=== PATIENT | female | born 1960 | race Caucasian/White ===

== ENCOUNTER 2020-03-29 20:02 | Inpatient (IN) | payer OTHER, MEDICAID ==
[~2020-03-29] VITALS: Ht 167.6 cm; Wt 100.9 kg
--- NOTE | ~2020-03-29 | PROC ---
[address] [address] PROCEDURE REPORT Name: ALYCE GRAMAJO Room: [address] IN ..#: [id number] Admission: 03/30/20 Attend Phys: Whitney ham los [place] Discharge: Date of : 64 Report #: [id number] THIS REPORT FOR: //name// cc: Parker Han MD, Melvin L. MD ~ THIS REPORT FOR: //name// For GI report, please see the Provation report in Perceptive 7 content. By: 0647Medical Records Staff LUCIAN /GAIL
[~2020-03-29 20:02] MED LIST: FENTANYL PA25 MCG/HR; MINOCIN100 MG PO; PREDNISONE 10 M10 MG PO; PRINIVIL20 M1 PO; PROTONIX40 M1 PO; TRAMADOL 50 MG50 MG PO
[2020-03-29 20:18] VITALS: BP 136/71
[2020-03-29 20:38] LABS: ABSOLUTE BASOPHILS 0.1 thou/uL (0.0-0.2); ABSOLUTE EOSINOPHILS 0.1 thou/uL (0.0-0.7); ABSOLUTE LYMPHOCYTES 2.3 thou/uL (0.8-5.3); ABSOLUTE MONOCYTES 0.5 thou/uL (0.0-1.2); ABSOLUTE NEUTROPHILS 3.1 thou/uL (1.6-8.1); BASOPHILS 1.8 %; EOSINOPHILS 2.4 %; HEMATOCRIT 33.2 % (37.0-47.0); HEMOGLOBIN 10.7 gm/dL (12.0-15.0); LYMPHOCYTES 37.3 %; MCH 22.8 pg (26.0-34.0); MCHC 32.1 g/dL (28.0-37.0); MONOCYTES 8.3 %; MPV 8.6 fl. (7.2-11.1); NUCLEATED RBCS 0 /100WBC; PLATELET COUNT* 364 thou/uL (150-400); POLYS 50.2 %; RBC 4.67 mil/uL (4.20-5.00); RDW-CV 23.7 % (10.5-14.5); WBC 6.1 thou/uL (4.0-11.0)
[2020-03-29 20:48] LABS: CALCIUM 8.8 mg/dL (8.5-10.1); CREATININE 1.2 mg/dL (0.6-1.3)
[2020-03-29 20:50] LABS: INR 0.9; PROTIME 9.4 Seconds (9.20-11.50)
[2020-03-29 21:00] LABS: POTASSIUM 2.7 mmol/L (3.5-5.1)
[2020-03-29 21:03] LABS: ALBUMIN 3.5 g/dL (3.4-5.0); MAGNESIUM 1.4 mg/dL (1.8-2.4); TOTAL BILIRUBIN 0.8 mg/dL (<0.1-1.0); TOTAL PROTEIN 8.2 g/dL (6.4-8.2)
[2020-03-29 22:09] LABS: ANISOCYTOSIS 2+; HYPOCHROMASIA 1+; MICROCYTES 2+; PLATELET ESTIMATE ADEQUATE
--- NOTE | 2020-03-29 22:18 | NUR ---
PLACED PATIENT ON A BEDPAN. PATIENT STATES THAT SHE CANNOT PEE YET, PULLED BEDPAN OUT FROM BENEATH HER. NOTIFIED
--- NOTE | 2020-03-29 22:34 | NUR ---
RN ASKED PATIENT IF SHE WAS ABLE TO WALK ACROSS THE TEAGUE AND GIVE A URINE SPECIMEN. PATIENT STATED THAT SHE WAS UNABLE TO GO AT THIS TIME. RN ASKED PATIENT IF SHE WOULD ALLOW RN TO STRAIGHT CATH HER. PATIENT REFUSED, STATING THAT SHE WAS GOING TO GO HOME. SON AT BEDSIDE AND IS MAKING PATIENT, AT LEAST, RECEIVE IV POTASSIUM AND MAGNESIUM. UNCLEAR AT THIS TIME IF PATIENT WILL BE AGREEABLE TO BEING ADMITTED.
[2020-03-29 23:12] LABS: URINE BLOOD NEGATIVE (Negative); URINE CLARITY CLEAR; URINE COLOR YELLOW; URINE GLUCOSE-RANDOM NEGATIVE (Negative); URINE KETONES TRACE (Negative); URINE LEUKOCYTES-REFLEX TRACE (Negative); URINE NITRITE-REFLEX NEGATIVE (Negative); URINE PROTEIN NEGATIVE (Negative)
[2020-03-29 23:15] LABS: URINE BILIRUBIN 1+ (Negative)
[2020-03-29 23:16] LABS: ICTOTEST (BILI CONFIRMATORY) Negative (Negative)
[2020-03-29 23:22] LABS: AMORPHOUS URATES Many /LPF (None Seen); BACTERIA-REFLEX >30 Many /HPF (None Seen); CASTS None Seen /LPF (None Seen); SQUAMOUS >10 Many /LPF (0-3); URINE RBC 0-2 Rare /HPF (0-2); URINE WBC-REFLEX 0-5 Rare /HPF (0-5)
[2020-03-29 23:47] LABS: AMP/METHAMP POSITIVE (Negative); BARBITURATES Negative (Negative); BENZODIAZEPINES Negative (Negative); COCAINE Negative (Negative); METHADONE Negative (Negative); OPIATES Negative (Negative); PCP Negative (Negative); THC Negative (Negative)
[2020-03-30 01:35] VITALS: BP 155/74
[2020-03-30 02:15] VITALS: BP 127/66
[2020-03-30 04:00] VITALS: BP 141/61
[2020-03-30 05:27] LABS: PHOSPHORUS* 3.2 mg/dL (2.5-4.9)
[2020-03-30 05:43] LABS: AMMONIA < 10 umol/L (11-32)
--- NOTE | 2020-03-30 06:56 | NUR ---
REPORT RECIEVED FROM ER. PT ORIENTED TO ROOM, CALL LIGHT SHOWN, FALL AGREEMENT WENT OVER. FALL PRECATIONS IN PLACE. ADMISSION COMPLETED ABLE. PT UNABLE TO FOCUS DURING ADMISSION QUESTIONS. PT STATES SHE DRINKS HALF A GALLON OF WHISKEY EACH DAY AND SHE HAS NEVER HAD WITHDRAWLS BEFORE. WILL CONTINUE WITH PLAN OF CARE.
[2020-03-30 07:30] VITALS: BP 162/82
--- NOTE | 2020-03-30 10:13 | EKG ---
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: ROB : 1960 Requested By: Evangelina Martinez Order Number: [id number] MD: Migue Jackson Measurements Intervals Addison Rate: 86 P: 53 OK: 132 QRS: 10 QRSD: 89 T: 67 QT: 413 QTc: 494 Interpretive Statements Sinus rhythm Probable left atrial enlargement Borderline repolarization abnormality Borderline prolonged QT interval Baseline wander in lead(s) V1 No previous ECG available for comparison Electronically Signed On 03-30-2020 10:11:20 CDT by Migue Jackson [email or web address] <ELECTRONICALLY SIGNED> By: Migue Jackson MD, [facility] 03/30/20 1011 49 49 Migue Jackson MD, [facility] /EPI
[2020-03-30 10:56] LABS: MAGNESIUM 2.2 mg/dL (1.8-2.4)
[2020-03-30 10:57] LABS: POTASSIUM 3.9 mmol/L (3.5-5.1)
[2020-03-30 12:27] VITALS: BP 129/75
--- NOTE | 2020-03-30 14:40 | NUR ---
Pt is A&O. Resides at home with her son and roommate. Independent. They eat out alot, Pt asked about a CG through her RUBEN, CM will provide Pt will info to initiate in home care services. No DME. Hx of HH. Hx of skilled at [facility]. Goal is home [place], anticipate dc tomorrow. Pt wants HH, nurse and SW for community resources.
[2020-03-30 20:00] VITALS: BP 139/76
[2020-03-31] VITALS: BP 150/71
--- NOTE | 2020-03-31 03:54 | NUR ---
ASSUMED PT CARE AT APPROX 1930. PT IS ASLEEP BUT AWAKENS WHEN NAME IS CALLED. PT IS ORIENTED X4. CENTREX RADIO OPERATOR IN PLACE AND IS TRACING SR. ALCOHOL WITDRAWAL ASSESSMENT DONE AND CHARTED. NO ACUTE CHANGES OVERNIGHT. CALL LIGHT WITHIN REACH. HOURLY ROUNDING DONE FOR PT SAFETY. HIGH FALL PRECAUTIONS IN PLACE. WILL CONTINUE TO MONITOR PT.
[2020-03-31 04:00] VITALS: BP 168/77
[2020-03-31 04:22] LABS: ABSOLUTE BASOPHILS 0.1 thou/uL (0.0-0.2); ABSOLUTE EOSINOPHILS 0.2 thou/uL (0.0-0.7); ABSOLUTE LYMPHOCYTES 1.1 thou/uL (0.8-5.3); ABSOLUTE MONOCYTES 0.4 thou/uL (0.0-1.2); ABSOLUTE NEUTROPHILS 2.1 thou/uL (1.6-8.1); EOSINOPHILS 4.1 %; HEMATOCRIT 25.5 % (37.0-47.0); LYMPHOCYTES 28.3 %; MCH 23.4 pg (26.0-34.0); MCHC 31.7 g/dL (28.0-37.0); MONOCYTES 10.7 %; MPV 9.2 fl. (7.2-11.1); NUCLEATED RBCS 0 /100WBC; POLYS 54.9 %; RBC 3.45 mil/uL (4.20-5.00); RDW-CV 23.3 % (10.5-14.5); WBC 3.8 thou/uL (4.0-11.0)
[2020-03-31 04:35] LABS: CALCIUM 7.8 mg/dL (8.5-10.1); POTASSIUM 3.4 mmol/L (3.5-5.1)
[2020-03-31 04:38] LABS: HEMOGLOBIN 8.1 gm/dL (12.0-15.0); PLATELET COUNT* 225 thou/uL (150-400)
[2020-03-31 05:57] LABS: ANISOCYTOSIS 2+; HYPOCHROMASIA 1+
[2020-03-31 08:00] VITALS: BP 158/71
[2020-03-31 11:40] LABS: HEMATOCRIT 25.7 % (37.0-47.0); HEMOGLOBIN 8.1 gm/dL (12.0-15.0); MCH 23.1 pg (26.0-34.0); MCHC 31.4 g/dL (28.0-37.0); MCV 73.8 fL (80.0-100.0); MPV 8.5 fl. (7.2-11.1); RBC 3.49 mil/uL (4.20-5.00); RDW-CV 23.4 % (10.5-14.5); WBC 3.2 thou/uL (4.0-11.0)
[2020-03-31 12:15] VITALS: BP 159/66
--- NOTE | 2020-03-31 14:31 | NUR ---
Per , Pt anemic today, GI work up pending. Follow for withdrawals.
[2020-03-31 17:18] VITALS: BP 156/73
--- NOTE | 2020-03-31 19:05 | NUR ---
ASSUMED PT CARE AT 0730. ASSESSMENT COMPLETED CHARTED. ABLE TO MAKE NEEDS KNOWN. NO C/O PAIN OR DISCOMFORT. CIWA WENT BETWEEN A 4 AND A 9, GOT SEVERAL DOSES OF ANXIETY MEDS TODAY. BOWEL PREP STARTED TODAY AND FINISHED IT AT AROUND 5PM. MULTIPLE BOWEL MOVEMENTS NOTED, UP WITH SBA. RESTING IN BED AT THIS TIME. WILL CONTINUE TO MONITOR.
[2020-03-31 20:00] VITALS: BP 121/66
[2020-04-01] VITALS (7 sets, daily range): BP systolic 136–171; BP diastolic 52–91
--- NOTE | 2020-04-01 04:24 | NUR ---
ASSUMED PT CARE AT APPROX 1930. PT IS SLEEPING BUT IS AROUSABLE AND IS ORIENTED X4. FRUIT DRYER IN PLACE TRACING SR. ALCOHOL WITHDRAWAL ASSESSMENT DONE AND CHARTED. MEDS GIVEN PER MAR ORDERED. PT IS NPO AFTER MIDNIGHT FOR EGD/COLONOSCOPY IN AM. NO ACUTE CHANGES OVERNIGHT. CALL LIGHT WITHIN REACH. HOURLY ROUNDING DONE FOR PT SAFETY.HIGH FALL PRECAUTIONS IN PLACE.
[2020-04-01 04:39] LABS: CALCIUM 7.7 mg/dL (8.5-10.1); CREATININE 0.9 mg/dL (0.6-1.3); MAGNESIUM 1.3 mg/dL (1.8-2.4); PHOSPHORUS* 1.8 mg/dL (2.5-4.9); POTASSIUM 3.2 mmol/L (3.5-5.1)
[2020-04-01 04:56] LABS: % SATURATION 6 % (20-39); IRON 15 ug/dL (50-175)
[2020-04-01 10:20] LABS: HEMATOCRIT 25.5 % (37.0-47.0); HEMOGLOBIN 7.8 gm/dL (12.0-15.0); MCH 23.1 pg (26.0-34.0); MCHC 30.5 g/dL (28.0-37.0); MCV 75.7 fL (80.0-100.0); MPV 9.4 fl. (7.2-11.1); NUCLEATED RBCS 0 /100WBC; PLATELET COUNT* 191 thou/uL (150-400); RBC 3.37 mil/uL (4.20-5.00); RDW-CV 23.8 % (10.5-14.5)
[2020-04-01 11:00] LABS: ABSOLUTE EOSINOPHILS 0.1 thou/uL (0.0-0.7); ABSOLUTE LYMPHOCYTES 1.4 thou/uL (0.8-5.3); ABSOLUTE MONOCYTES 0.2 thou/uL (0.0-1.2); ABSOLUTE NEUTROPHILS 1.4 thou/uL (1.6-8.1); ATYPICAL LYMPHS 3 %; HYPOCHROMASIA 1+; PLATELET ESTIMATE ADEQUATE
[2020-04-01 11:01] LABS: ANISOCYTOSIS 1+; POIKILOCYTOSIS 1+; POLYCHROMASIA Occasional
--- NOTE | 2020-04-01 16:23 | NUR ---
Per , Pt to have EGD/colon today. Possibly detoxing. [place], if dc this weekend, fax facesheet, h&P and HH orders/with meds to [phone].
--- NOTE | 2020-04-01 17:12 | NUR ---
RE: Ampicillin pharmacy dosing. RN states to treat UTI (see urine culture sensitivities). Dosing per recommendations. Thank you.
--- NOTE | 2020-04-01 19:00 | NUR ---
ASSUMED PT CARE AT 0730. ASSESSMENT COMPLETED CHARTED. ABLE TO MAKE NEEDS KNOWN. UP WITH SBA. CIWA PROTOCOL IN PLACE. RESTING IN BED MOST OF THE DAY. NO C/O PAIN OR DISCOMFORT. ANXIOUS AND NAUSEOUS. EGD AND COLON HAPPENED AROUND 1000 AM. IV FLUIDS RUNNING PER EMAR. WILL CONTINUE TO MONITOR.
[2020-04-02 00:27] VITALS: BP 143/69
[2020-04-02 04:20] VITALS: BP 152/62
--- NOTE | 2020-04-02 05:04 | NUR ---
ASSUMED PT CARE AT APPROX 1930. PT IS SLEEPING BUT AWAKENS WHEN NAME IS CALLED. INSIDE PHONE SALES IN PLACE, TRACING SR/SB. CIWA DONE CHARTED. NO ACUTE CHANGES OVERNIGHT. CALL LIGHT WITHIN REACH. HOURLY ROUNDING DONE FOR PT SAFETY. HIGH FALL PRECAUTONS IN PLACE. WILL CONTINUE TO MONITOR PT.
[2020-04-02 08:00] VITALS: BP 162/82
--- NOTE | 2020-04-02 10:41 | NUR ---
ASSUMED PT CARE AT 0730, PT RESTING IN BED, SATTING 99% ON RA, TRACING SR ON THE MANAGER FILM AND C/O ANXIETY, SCHEDULED ATIVAN GIVEN. PT SCORED A 10 ON CIWA SCALE. PT IS UP W/ STAND BY ASSIST TO THE BEDSIDE COMODE. PT STATES SHE HAD SOME AUDITORY AND VISUAL HALLUCINATIONS OVER NIGHT, BUT NONE CURRENTLY. PT GOAL IS ANXIETY CONTROL AND INCREASE ACTIVITY. AM ASSESSMENT CHARTED, MEDS PER MAR, BED IN LOW POSITION, BED ALARM ON, CALL LIGHT W/IN REACH, HOURLY ROUNDING OBSERVED, WILL CONTINUE POC.
[2020-04-02 11:30] VITALS: BP 147/71
[2020-04-02 16:00] VITALS: BP 142/82
--- NOTE | 2020-04-02 18:29 | NUR ---
NO ACUTE CHANGES THROUGHOUT SHIFT, PT HAD SOME C/O BACK PAIN, TREATED W/ PRN TYLENOL W/ RELIEF. FURTHER C/O ANXIETY ADDRESSED W/ NON-PHARM MEASURES W/ SOME RELIEF. PT EDUCATED ON REDUCING MEDS USED FOR ANXIETY, PT COMMUNICATES UNDERSTANDING. D5NS STILL RUNNING AT 100 ML/HR AND PT STILL A&OX4 BUT FORGETFUL. MEDS PER DEC, HOURLY ROUNDING OBSERVED, FALL PRECAUTIONS IN PLACE, WILL CONTINUE POC.
[2020-04-02 20:00] VITALS: BP 157/82
[2020-04-03] VITALS: BP 153/79
[2020-04-03 04:00] VITALS: BP 153/74
[2020-04-03 04:38] LABS: ABSOLUTE BASOPHILS 0.1 thou/uL (0.0-0.2); ABSOLUTE EOSINOPHILS 0.2 thou/uL (0.0-0.7); ABSOLUTE LYMPHOCYTES 1.2 thou/uL (0.8-5.3); ABSOLUTE MONOCYTES 0.5 thou/uL (0.0-1.2); ABSOLUTE NEUTROPHILS 2.3 thou/uL (1.6-8.1); BASOPHILS 1.4 %; EOSINOPHILS 4.5 %; HEMATOCRIT 26.9 % (37.0-47.0); HEMOGLOBIN 8.6 gm/dL (12.0-15.0); LYMPHOCYTES 28.5 %; MCH 24.3 pg (26.0-34.0); MCHC 32.1 g/dL (28.0-37.0); MCV 75.7 fL (80.0-100.0); MPV 8.8 fl. (7.2-11.1); NUCLEATED RBCS 0 /100WBC; PLATELET COUNT* 186 thou/uL (150-400); POLYS 53.6 %; RBC 3.55 mil/uL (4.20-5.00); RDW-CV 24.1 % (10.5-14.5); WBC 4.3 thou/uL (4.0-11.0)
[2020-04-03 04:45] LABS: CALCIUM 8.2 mg/dL (8.5-10.1); POTASSIUM 4.2 mmol/L (3.5-5.1)
--- NOTE | 2020-04-03 05:57 | NUR ---
PT CARE ASSUMED AT 1930. PT IS IMPULSIVE AND REFUSED TO BE IN THE BED ALARM, EDUCATION GIVEN NEEDS REINFORCEMENT. C/O PAIN, MEDICATION GIVEN PER EMAR. CALL LIGHT WITHINREACH AND BED IN LOW POSITION.
[2020-04-03 07:40] VITALS: BP 128/77
--- NOTE | 2020-04-03 10:01 | NUR ---
ASSUMED CARE OF PT AT 0730. PT RESTING IN BED. A&0X4, DENIES ANY PAIN OR SHORTNESS OF BREATH AT THIS TIME. CIWA CHARTED. PT NOT REQUIRING ATIVAN. TRACING SR WITH PAC'S ON THE TEST CARRIER. ON RA SAT 99%. PT UP WITH SBA TO BSC. IVF DISCONTINUED PER DR RODRIGUEZ. PT GOAL FOR TODAY IS MAINTAIN CIWA BELOW 5 AND INCREASE ACTIVITY. AM ASSESSMENT CHARTED. MEDICATIONS PER EMAR. PT REPOSITIONS SELF WITH REMINDERS. HOURLY ROUNDING OBSERVED. BED IN LOW POSITION. CALL LIGHT WITHIN REACH. WILL CONTINUE PLAN OF CARE.
[2020-04-03 11:30] VITALS: BP 140/63
[2020-04-03 16:00] VITALS: BP 157/92
--- NOTE | 2020-04-03 17:58 | NUR ---
NO ACUTE CHANGES THROUGHOUT SHIFT. REFER TO CHARTING. CIWA REMAINS 3-5. NO ATIVAN REQUIRED. PT UP TO CHAIR FOR MEALS-TOLERATED WELL. CONTINUES TO TRACE SR WITH OCCASIONAL PAC'S ON THE SANDBLASTER SUPERVISOR. PT PROGRESSING TOWARDS GOALS. PROBABLE DISCHARGE HOME TOMORROW 04/04. MEDICATIONS PER DEC. PT REPOSITIONS SELF. HOURLY ROUNDING OBSERVED. BED IN LOW POSITION. CALL LIGHT WITHIN REACH. WILL CONTINUE PLAN OF CARE.
[2020-04-03 19:40] VITALS: BP 143/78
[2020-04-04] VITALS: BP 120/67
[2020-04-04 04:00] VITALS: BP 133/69
[2020-04-04 04:32] LABS: CALCIUM 8.2 mg/dL (8.5-10.1); CREATININE 1.2 mg/dL (0.6-1.3); MAGNESIUM 1.8 mg/dL (1.8-2.4); POTASSIUM 3.9 mmol/L (3.5-5.1)
--- NOTE | 2020-04-04 04:58 | NUR ---
PT CARE ASSUMED AT 1930. SAT MAINTAINED IN RA. DENIES PAIN AND SOB. CALL LIGHT WITHIN REACH AND BED IN LOW POSITION. REFUSED TO BE ON BED ALARM, EDUCATION GIVEN, NEEDS REINFORCEMENT. HOURLY ROUNDING DONE FOR PT SAFETY.
[2020-04-04 08:12] VITALS: BP 147/82
--- NOTE | 2020-04-04 08:49 | NUR ---
ASSUMED PT CARE AT 0730, PT RESTING IN BED, SATTING 99% ON RA, TRACING SR ON THE PECAN CLEANER AND HAS NO C/O PAIN OR ANXIETY, PT GOAL IS TO ANXIETY MANAGEMENT W/ NON-PHARM METHODS AND WORK ON DC PLANNING TO HOME. PT IS UP W/ ASSIST OR AD BEATRIS TO THE COMODE. AM ASSESSMENT CHARTED, MEDS PER MAR, HOURLY ROUNDING OBSERVED, WILL CONTINUE POC.
[2020-04-04 10:15] VITALS: BP 147/82
[2020-04-04] MEDS ORDERED: VITAMIN B-1100 M2 PO (11:39)
[2020-04-04] MEDS ORDERED: FOLIC ACID1 MG PO (11:43)
[2020-04-04] MEDS ORDERED: CIPRO500 M1 PO (11:44)
[2020-04-04] MEDS ORDERED: PANTOPRAZOLE SO40 M1 PO (11:45)
--- NOTE | 2020-04-04 13:34 | NUR ---
DC ORDERS RECEIVED. DC INSTRUCTIONS, CARE NOTES, SCRIPTS AND F/U APPTS. GIVEN TO PT, PT COMMUNICATES UNDERSTANDING OF DC TEACHING. INSTRUCTIONAL SYSTEMS DESIGNER AND IV REMOVED. PT DC'D BY WC W/ NURSING STAFF TO SON'S PERSONAL VEHICLE.
--- NOTE | 2020-04-05 13:08 | PATH ---
[address] [address] PATHOLOGY RPT PROCEDURE Name: OGLA LOMELI Room: [address] IN M.R.#: [id number] Admission: 03/30/20 Date of : 64 Discharge: 04/04/20 Report #: [id number] Path Case #: [id number] [facility] Accession Number: [id number] . 01 Material submitted: . PART A: duodenum - BIOPSIES OF DUODENUM FOR DUODENITIS, DIARRHEA, AND WEIGHT LOSS PART B: colon - RANDOM BIOPSIES FOR DIARRHEA TO R/O MICROSCOPIC COLITIS . 01 Clinician provided ICD-10: F10.129 G92 . 01 Clinical history: . Alcohol abuse with intoxication, toxic encephalopathy. . 02 Diagnosis: A. Biopsies of duodenum: - Normal duodenal mucosa. . B. Random biopsies: - Normal colonic mucosa. . (NAKITA:vasquez; 04/04/2020) [facility] 04/04/2020 1630 Local . 02 Electronically signed: . Haseeb Foreman MD, Pathologist NPI- [id number] . 01 Gross description: . A. Received in formalin labeled "Lomeli Olga, biopsies of duodenum for duodenitis, diarrhea, weight loss" is a 0.8 x 0.5 x 0.1 cm aggregate of rosales-brown soft tissue fragments. The specimen is submitted entirely in A1. . B. Received in formalin labeled "Armani Olga, random biopsies for diarrhea to rule out microscopic colitis" is a 1.2 x 0.7 x 0.1 cm aggregate of rosales-brown soft tissue fragments. The specimen is submitted entirely in B1. [place]03[place]2020[place] [facility] 04/03/2020 1108 Local . 02 Pathologist provided ICD-10: K29.80, R19.7, R63.4 . 02 CPT . 563006, 699166 Specimen Comment: A courtesy copy of this report has been sent to [phone], [place] [address] PATHOLOGY RPT PROCEDURE Name: ARMANIOLGA A Room: [address] IN M.R.#: [id number] Admission: 03/30/20 Date of : 64 Discharge: 04/04/20 Report #: [id number] Path Case #: [id number] Specimen Comment: [phone], Specimen Comment: Report sent to ,DR MONET / DR LOPEZ Performed at: [address], [place], [place] [id number] MD Pablo Parish MD Phone: [phone] Performed at: 02 [facility] [address], [place], [place] [id number] MD Haseeb Foreman MD Phone: [phone]
--- NOTE | 2020-05-01 08:28 | CON ---
[address] [address] CONSULTATION Name: AVILAALYCE Gilberto Room: [address]#: [id number] Admission: 03/30/20 Attend Phys: Whitney Wahl Discharge: 04/04/20 Date of : 64 Report #: [id number] THIS REPORT FOR: //name// cc: Parker Han MD, Melvin L. MD ~ THIS REPORT FOR: //name// CC: Whitney Schumacher DATE OF SERVICE: 03/31/2020 HISTORY OF PRESENT ILLNESS: This is a pleasant 59-year-old female with past medical history significant for alcohol abuse and smoking, who presented to the hospital with alcohol intoxication. The GI service has been consulted for anemia that was detected incidentally. The patient denies any abdominal pain, nausea, vomiting, diarrhea, hematemesis, or hematochezia. She reports her last colonoscopy was 5 years back. Her last EGD was 10 years back, both of which were unremarkable. PAST MEDICAL HISTORY: Nonsignificant. PAST SURGICAL HISTORY: The patient had a femur neck fracture in 2006; in 2012, she had a bone fragment removed from the right foot; in 1988, she had a cholecystectomy; in 2008, she had a crushed ankle. SOCIAL HISTORY: The patient has a 15-wqnt-osao smoking history, smokes about a pack a day and also drinks about half gallon of whiskey every day. She denies recreational drug use; however, her urine drug screen was positive for methamphetamine. FAMILY HISTORY: There is no family history of colon cancer. REVIEW OF SYSTEMS: A comprehensive 10-point review of systems is negative except for what was mentioned in the HPI. PHYSICAL EXAMINATION: VITAL SIGNS: Temperature 37.1, pulse rate 82, respirations 16, blood pressure 158/71, pulse ox 97%. GENERAL: The patient is alert, awake, oriented x 3. HEENT: Pupils are equal, round, reactive to light and accommodation. Mucous membranes are moist. There is no congestion. LUNGS: Clear to auscultation bilaterally. CARDIOVASCULAR: Rate and rhythm regular, S1, S2 present. ABDOMEN: Soft. There is no distention, guarding or rigidity. EXTREMITIES: Warm, [place] [id number] CONSULTATION Name: ALYCE GRAMAJO Gilberto Room: [address]#: [id number] Admission: 03/30/20 Attend Phys: Whitney judd Wikieup Discharge: 04/04/20 Date of : 64 Report #: [id number] LABORATORY DATA: Hemoglobin 8.1, hematocrit 25.7, WBC count 3.2, MCV 73.8, platelet count 222. Sodium 140, potassium 3.4, chloride 105, bicarbonate 27, BUN 12, creatinine 1. ASSESSMENT AND PLAN: A pleasant 59-year-old female with past medical history of alcohol abuse, presenting with microcytic anemia. The patient denies any signs of overt GI bleeding at this time. I would recommend an EGD and colonoscopy tomorrow for further evaluation. Further recommendations will be based on results of endoscopy. <ELECTRONICALLY SIGNED> By: Yariel Conner MD 05/01/20 0828 1209 [id number] Conner MD /nt
== END 2020-04-04 13:30 | disposition home health service (06) | DRG 377 ==
LOC: M.ERS 20:02 → M.TBA-ER 03-30 00:39 → M.2W 03-30 00:39
PROVIDERS: Emergency Medicine; Internal Medicine; ADMIT Family Medicine; ATTEND Family Medicine
DX: K92.2 Gastrointestinal hemorrhage, unspecified (principal); G92 Toxic encephalopathy; R71.0 Precipitous drop in hematocrit; N39.0 Urinary tract infection, site not specified; E87.1 Hypo-osmolality and hyponatremia; F10.129 Alcohol abuse with intoxication, unspecified; F15.10 Other stimulant abuse, uncomplicated; Y90.8 Blood alcohol level of 240 mg/100 ml or more; B95.2 Enterococcus as the cause of diseases classified elsewhere; E87.6 Hypokalemia; E83.42 Hypomagnesemia; F17.210 Nicotine dependence, cigarettes, uncomplicated; I10 Essential (primary) hypertension; K21.0 Gastro-esophageal reflux disease with esophagitis; K31.89 Other diseases of stomach and duodenum; K44.9 Diaphragmatic hernia without obstruction or gangrene; R19.7 Diarrhea, unspecified; K64.8 Other hemorrhoids; Z90.49 Acquired absence of other specified parts of digestive tract; Z79.899 Other long term (current) drug therapy; Z88.5 Allergy status to narcotic agent